=== PATIENT | female | born 1990 | race Caucasian/White ===

== ENCOUNTER 2017-01-12 16:09 | Emergency (ER) | payer OTHER ==
--- NOTE | ~2017-01-12 | CT4 ---
[facility] A Service of [facility] RADIOLOGY TEXT RESULTS PATIENT: ARIANE SHAH LOCATION: CFTX : 88 UNIT #: [id number] AGE: [address]: Brian Enciso SEX: F ORDER DR: [id number] [facility]. [place], [place] [address] [id number] MR#: [id number] Acc #: [id number] NAME: ARIANE SHAH : 1990 SEX: F STUDY DATE/TIME: 01/12/2017 18:19 UNIT: CFTX ROOM: STUDY DESCRIPTION: CT Abd and Pelv Wo Cont Attending Physician: Brian Enciso Ordering Physician: Brian Enciso Primary Care Physician: Primary Care Physician No MEDICAL IMAGING REPORT This report is preliminary unless electronic signature is present EXAM CT abdomen and pelvis without contrast DATE: 01/12/2017 HISTORY Mid to left upper quadrant abdominal pain for 5 days. COMPARISON None. PROCEDURE 3 mm noncontrast axial images through the abdomen and pelvis. Enteric contrast was not administered. Sagittal and coronal reformatted images were obtained. This CT exam was performed with one or more of the following radiation dose reduction techniques: automatic exposure control, adjustment of mA and/or kV according to patient size, and iterative reconstruction. FINDINGS ABDOMEN FINDINGS: Lung bases are free of consolidation. Noncontrast appearance of the liver, gallbladder, spleen, pancreas, adrenals and kidneys is within normal limits. No urinary tract stone or hydronephrosis is identified. The appendix appears unremarkable. PELVIS FINDINGS: There is a small quantity of pelvic free fluid which is nonspecific. Urinary bladder, uterus and rectum are within normal limits. No acute osseous abnormalities are identified. IMPRESSION [facility] A Service of [facility] RADIOLOGY TEXT RESULTS PATIENT: ARIANE SHAH LOCATION: [place] : 89 UNIT #: [id number] AGE: [address]: Brian Enciso SEX: F ORDER DR: 1. Small quantity free fluid is demonstrated within the pelvic cul-de-sac. This is nonspecific and may be physiologic. 2. No urinary tract stone or hydronephrosis. 3. The appendix is normal. Dictated by... Linda Grissom M.D. THIS IS AN ELECTRONICALLY VERIFIED REPORT Linda Grissom M.D. at 01/13/2017 10:40 AM RENE/silas TD: 01/13/2017 00:59 JOB #: [id number] MEDICAL IMAGING REPORT Page 1 of 1 COPY
[2017-01-12 17:11] LABS: URINE SOURCE CLEAN CATCH
[2017-01-12 17:20] LABS: BASOPHIL# 0.1 X10e3 (0-0.3); BASOPHIL% 0.7 % (0-2.5); EOSINOPHIL# 0.2 X10e3 (0-0.7); EOSINOPHIL% 1.4 % (0.0-7.0); HEMATOCRIT 39.9 % (35.0-45.0); LYMPHOCYTE# 3.7 X10e3 (1.0-3.5); LYMPHOCYTE% 32.5 % (17.0-45.0); MEAN CELL VOLUME 88.5 FL (83-96); MEAN CORPUSCULAR HEMOGLOBIN 28.8 PG (28-34); MEAN CORPUSCULAR HGB CONC 32.5 g/dL (30-36); MEAN PLATELET VOLUME 9.9 FL (6.5-11.5); MONOCYTE# 0.9 X10e3 (0-1.0); MONOCYTE% 7.9 % (3.0-12.0); NEUTROPHIL# 6.5 X10e3 (1.5-7.1); NEUTROPHIL% 57.5 % (40-75); PLATELET COUNT 294 X10e3 (140-420); RED BLOOD COUNT 4.51 X10e (3.90-5.30); RED CELL DISTRIBUTION WIDTH 13.2 % (11.0-15.5); WHITE BLOOD COUNT 11.3 X10e3 (4.0-10.5)
[2017-01-12 17:21] LABS: URINE APPEARANCE CLOUDY; URINE BLOOD 1+ (NEG); URINE COLOR DK YELLOW; URINE GLUCOSE NEG (NEG); URINE KETONE TRACE (NEG); URINE LEUKOCYTE ESTERASE TRACE (NEG); URINE NITRATE POS (NEG); URINE PROTEIN TRACE (NEG); URINE SPECIFIC GRAVITY 1.027 (1.003-1.035)
[2017-01-12 17:22] LABS: DIFF IND NO
[2017-01-12 17:24] LABS: CULTURE INDICATED? YES; URINE BACTERIA AUWI 4+ (NEGATIVE); URINE SQUAMOUS EPITHELIAL CELL MANY /[HPF]
[2017-01-12 17:41] LABS: ALBUMIN SERUM 3.7 g/dL (3.5-5.0); BILIRUBIN, DIRECT 0.1 mg/dL (0.0-0.2); BILIRUBIN,INDIRECT 0.7 mg/dL (0.0-0.9); BILIRUBIN,TOTAL 0.8 mg/dL (0.2-2.0); CALCIUM SERUM 9.1 mg/dL (8.4-10.2); CREATININE SERUM 0.8 mg/dL (0.6-1.4); GLOM FILT RATE Estimated 101.1 mL/min (>60); POTASSIUM 4.1 mmol/L (3.5-5.1); PROTEIN TOTAL SERUM 7.7 g/dL (6.0-8.3)
[2017-01-15 10:30] LABS: CHLAMYDIA TRACH Detected (Not Detected); N GONOR Not Detected (Not Detected)
== END 2017-01-12 19:37 | disposition home or self-care (01) ==
LOC: CFTX 16:09 → CED 16:09 → CFTX 16:40
PROVIDERS: Nurse Practitioner
DX: N76.0 Acute vaginitis (principal); N39.0 Urinary tract infection, site not specified; F17.200 Nicotine dependence, unspecified, uncomplicated
CPT/HCPCS: 36415; 74176; 80048; 80076; 81003; 82150; 83690; 84703; 85025; 87086; 87088; 87186; 87220; 87491; 87591; 87808; 87905; 96372; 99285; J0696

== ENCOUNTER 2017-03-24 07:16 | Emergency (ER) | payer OTHER ==
[~2017-03-24] VITALS: Ht 154.9 cm; Wt 77.1 kg
== END 2017-03-24 08:37 | disposition home or self-care (01) ==
LOC: CFTX 07:16 → CED 07:16 → CFTX 07:44
DX: J02.0 Streptococcal pharyngitis (principal); F17.210 Nicotine dependence, cigarettes, uncomplicated
CPT/HCPCS: 87880; 96372; 99283; J0561